=== PATIENT | female | born 1995 | race Caucasian/White ===

== ENCOUNTER 2020-04-26 12:57 | Emergency (ER) | payer OTHER ==
[2020-04-26] MEDS ORDERED: Ketamine 500 mg/10 ML MDV IV ONE (13:03)
--- NOTE | 2020-04-26 13:09 | EDM.PDOC ---
ED HPI GENERAL MEDICAL PROBLEM - General Chief Complaint: Lower Extremity Injury/Pain Stated Complaint: [facility] Time Seen by Provider: 04/26/20 12:58 Source of Information: Reports: Patient, EMS History Limitations: Reports: No Limitations - History of Present Illness INITIAL COMMENTS - FREE TEXT/NARRATIVE: The patient presents by [facility] for left patella dislocation. The patient was leaning against her care to grab something out of it and she twisted and her left patella dislocated laterally. The patient denies any other injuries. She has no medical problem. She last ate this morning. She has an IV and she was given a total of 1mg of dilaudid. Onset: Sudden Duration: Minutes: Location: Reports: Lower Extremity, Left (patella) Quality: Reports: Sharp Severity: Severe Improves with: Reports: Immobilization Worsens with: Reports: Movement Context: Denies: Trauma Associated Symptoms: Reports: No Other Symptoms - Related Data Allergies Allergy/AdvReac Type Severity Reaction Status Date / Time No Known Allergies Allergy Verified 04/26/20 13:02 Home Meds: Home Meds Hydrocodone/Acetaminophen [Hydrocodone-Acetamin 5-325 mg] 1 - 2 each PO Q6HR PRN #10 tablet 04/26/20 [Rx] Review of Systems - Review of Systems Review Of Systems: See Below Constitutional: Reports: No Symptoms Eyes: Reports: No Symptoms Ears: Reports: No Symptoms Nose: Reports: No Symptoms Mouth/Throat: Reports: No Symptoms Respiratory: Reports: No Symptoms Cardiovascular: Reports: No Symptoms GI/Abdominal: Reports: No Symptoms Genitourinary: Reports: No Symptoms Musculoskeletal: Reports: Other (Left patella dislocation) ED EXAM, GENERAL - Physical Exam Exam: See Below Exam Limited By: No Limitations General Appearance: Alert, No Apparent Distress Ears: Normal External Exam Nose: Normal Inspection Head: Atraumatic, Normocephalic Neck: Normal Inspection Respiratory/Chest: No Respiratory Distress, Lungs Clear, Normal Breath Sounds Cardiovascular: Regular Rate, Rhythm, No Edema, No Murmur GI/Abdominal: Soft, Non-Tender, No Organomegaly, No Mass Back Exam: Normal Inspection Extremities: Other (Lateral dislocation of the left patella. Good sensation and pulses distally.) ED TRAUMA EXTREMITY PROCEDURES - Joint Reduction Left Knee Sedation: Conscious Sedation Pre-Procedure NV Status: Normal Post-Procedure NV Status: Normal Technique: Other (Leg was straitend and the patella was easily reduced) Number of Attempts: 1 Post-Reduction Imaging: Completely Reduced Joint Reduction Complications: No Course - Vital Signs Last Recorded V/S: Last Vital Signs Temp 98.4 F 04/26/20 12:58 Pulse 66 04/26/20 12:58 Resp 16 04/26/20 12:58 BP 129/87 04/26/20 12:58 Pulse Ox 100 04/26/20 12:58 - Orders/Labs/Meds Orders: Active Orders 24 hr Category Date Time Status Knee 1V or 2V Lt [CR] Stat Exams 04/26/20 13:01 Taken Knee Min 4V Lt [CR] Stat Exams 04/26/20 13:30 Taken Lactated Ringers [Ringers, Lactated] 1,000 ml Med 04/26/20 13:30 Active IV ASDIRECTED Durable Medical Equipment for Discharge [DME for Oth 04/26/20 14:24 Ordered Discharge] [COMM] Stat Medication Orders Lactated Ringer's (Ringers, Lactated) 1,000 mls @ 150 mls/hr IV ASDIRECTED NOEMÍ Last Admin: 04/26/20 13:25 Dose: 150 mls/hr Documented by: SUSAN Bolton: Medications Generic Name Dose Route Start Last Admin Trade Name Freq PRN Reason Stop Dose Admin Lactated Ringer's 1,000 mls @ 150 mls/hr 04/26/20 13:30 04/26/20 13:25 Ringers, Lactated IV 150 mls/hr ASDIRECTED NOEMÍ Administration Discontinued Medications Generic Name Dose Route Start Last Admin Trade Name Freq PRN Reason Stop Dose Admin Ketamine HCl 60 mg 04/26/20 13:03 04/26/20 13:26 Ketalar IV 04/26/20 13:04 60 mg ONETIME ONE Administration - Re-Assessments/Exams Free Text/Narrative Re-Assessment/Exam: 04/26/20 13:08 I ordered an IV saline lock, x-ray and I will give her ketamine and sedate her and reduce the dislocation. 04/26/20 14:37 The reduction went well. The post reduction x-ray did not show any fractures. I will put her in a brace and have her follow up with Dr Wiley. Departure - Departure Time of Disposition: 14:40 Disposition: Home, Self-Care 01 Condition: Good Clinical Impression: Dislocation of left patella Qualifiers: Encounter type: initial encounter Qualified Code(s): S83.005A - Unspecified dislocation of left patella, initial encounter - Discharge Information *PRESCRIPTION DRUG MONITORING PROGRAM REVIEWED*: No *COPY OF PRESCRIPTION DRUG MONITORING REPORT IN PATIENT DUNIA: No Prescriptions: Hydrocodone/Acetaminophen [Hydrocodone-Acetamin 5-325 mg] 1 - 2 each PO Q6HR PRN #10 tablet PRN Reason: Pain Referrals: PCP,None [Primary Care Provider] - Hilton Wiley MD [Physician] - 1 Week Forms: ED Department Discharge Additional Instructions: Ice your knee for 15 minutes 3 times per day for 3 days. Wear the brace for comfort. Take tylenol or motrin for pain. If that does not work, try the hydrocodone. Follow up with Dr Wiley. Please return if you are worse. Sepsis Event Note (ED) - Evaluation Sepsis Screening Result: No Definite Risk - Focused Exam Vital Signs: Vital Signs Temp Pulse Resp BP Pulse Ox 04/26/20 12:58 98.4 F 66 16 129/87 100 - My Orders Last 24 Hours: My Active Orders 04/26/20 13:01 Knee 1V or 2V Lt [CR] Stat 04/26/20 13:30 Knee Min 4V Lt [CR] Stat Lactated Ringers [Ringers, Lactated] 1,000 ml IV ASDIRECTED 04/26/20 14:24 Durable Medical Equipment for Discharge [DME for Discharge] [COMM] Stat - Assessment/Plan Last 24 Hours: My Active Orders 04/26/20 13:01 Knee 1V or 2V Lt [CR] Stat 04/26/20 13:30 Knee Min 4V Lt [CR] Stat Lactated Ringers [Ringers, Lactated] 1,000 ml IV ASDIRECTED 04/26/20 14:24 Durable Medical Equipment for Discharge [DME for Discharge] [COMM] Stat
[2020-04-26] MEDS ORDERED: Lactated Ringers 1,000 ML IV SCH (13:30)
== END 2020-04-26 15:25 | disposition home or self-care (01) ==
LOC: JD.ED 12:57
DX: S83.005A Unspecified dislocation of left patella, initial encounter (principal); X50.1XXA Overexertion from prolonged static or awkward postures, initial encounter
CPT/HCPCS: 27560; 73560; 73564; 96360; 96361; 99152; 99283; J7120; 27562

== ENCOUNTER 2021-04-23 07:05 | Inpatient (IN) | payer OTHER ==
[2021-04-23] MEDS ORDERED: Bupivacaine 0.25% 10 ML SDV ONE (07:41)
[2021-04-23] MEDS ORDERED: Bupivacaine/fentaNYL/NS 100 ML Bag EPIDUR PRN (07:41)
[2021-04-23] MEDS ORDERED: ePHEDrine 50 MG/ML SDV IVPUSH PRN (07:41)
[2021-04-23] MEDS ORDERED: diphenhydrAMINE 50 MG/ML SDV IVPUSH PRN (07:41)
[2021-04-23] MEDS ORDERED: fentaNYL 100 MCG/2 ML SDV EPIDUR PRN (07:41)
[2021-04-23] MEDS ORDERED: Acetaminophen 325 MG Tab PO PRN (07:58)
[2021-04-23] MEDS ORDERED: Calcium Carbonate 500 MG Tab.Chew PO PRN (07:58)
[2021-04-23] MEDS ORDERED: Lidocaine 1% 50 ML MDV INJECT ONE (07:58)
[2021-04-23] MEDS ORDERED: Ondansetron 4 MG/2 ML SDV IVPUSH PRN (07:58)
[2021-04-23] MEDS ORDERED: Sodium Chloride 0.9% 10 ML Syringe FLUSH PRN (07:58)
[2021-04-23] MEDS ORDERED: Nalbuphine 10 MG/1 ML Vial IVPUSH PRN (07:58)
[2021-04-23] MEDS ORDERED: Oxytocin/Lactated Ringers 10 UNIT/1,000 ML BAG IV SCH ×2 (08:00)
[2021-04-23] MEDS: Lactated Ringers 1,000 ML IV SCH ×2 (10:26→12:28)
--- NOTE | 2021-04-23 12:57 | PCM.PREANE ---
Preanesthetic Assessment - Procedure Proposed Procedure: epidural - Anesthesia/Transfusion/Family Hx Anesthesia History: Prior Anesthesia Without Reaction Family History of Anesthesia Reaction: No Transfusion History: No Prior Transfusion(s) - Review of Systems General: Fatigue, Malaise Pulmonary: No Symptoms Cardiovascular: No Symptoms 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: Abdominal Pain (labor) Neurological: No Symptoms Other: Reports: None - Physical Assessment Vital Signs: Last Vital Signs Temp 36.6 C 04/23/21 08:06 Pulse 79 04/23/21 08:06 Resp 14 04/23/21 08:06 BP 119/80 04/23/21 08:06 Pulse Ox 100 04/23/21 08:06 Height: 1.73 m Weight: 71.985 kg ASA Class: 2 Mental Status: Alert & Oriented x3 Airway Class: Mallampati = 1 Dentition: Reports: Normal Dentition Thyro-Mental Finger Breadths: 3 Mouth Opening Finger Breadths: 3 ROM/Head Extension: Full Lungs: Clear to Auscultation, Normal Respiratory Effort - Lab Values: Laboratory Last Values WBC 7.17 K/mm3 (3.98-10.04) 04/23/21 08:40 RBC 3.93 M/mm3 (3.98-5.22) L 04/23/21 08:40 Hgb 10.9 gm/dl (11.2-15.7) L 04/23/21 08:40 Hct 33.9 % (34.1-44.9) L 04/23/21 08:40 MCV 86.3 fl (79.4-94.8) 04/23/21 08:40 MCH 27.7 pg (25.6-32.2) 04/23/21 08:40 MCHC 32.2 g/dl (32.2-35.5) 04/23/21 08:40 RDW Std Deviation 42.9 fL (36.4-46.3) 04/23/21 08:40 Plt Count 262 K/mm3 (182-369) 04/23/21 08:40 MPV 10.0 fl (9.4-12.3) 04/23/21 08:40 Neut % (Auto) 71.9 % (34.0-71.1) H 04/23/21 08:40 Lymph % (Auto) 20.4 % (19.3-51.7) 04/23/21 08:40 [place] % (Auto) 5.7 % (4.7-12.5) 04/23/21 08:40 Eos % (Auto) 1.3 (0.7-5.8) 04/23/21 08:40 Baso % (Auto) 0.1 % (0.1-1.2) 04/23/21 08:40 Neut # (Auto) 5.16 K/mm3 (1.56-6.13) 04/23/21 08:40 Lymph # (Auto) 1.46 K/mm3 (1.18-3.74) 04/23/21 08:40 [place] # (Auto) 0.41 K/mm3 (0.24-0.36) H 04/23/21 08:40 Eos # (Auto) 0.09 K/mm3 (0.04-0.36) 04/23/21 08:40 Baso # (Auto) 0.01 K/mm3 (0.01-0.08) 04/23/21 08:40 SARS-CoV-2 RNA (JUSTIN) Negative (NEGATIVE) 04/23/21 07:30 Blood Type O POSITIVE 04/23/21 08:40 Gel Antibody Screen Negative 04/23/21 08:40 - Allergies Allergies/Adverse Reactions: Allergies Allergy/AdvReac Type Severity Reaction Status Date / Time No Known Allergies Allergy Verified 04/23/21 08:41 - Anesthesia Plan Pre-Op Medication Ordered: None - Acknowledgements Anesthesia Type Planned: Epidural Pt an Appropriate Candidate for the Planned Anesthesia: Yes Alternatives and Risks of Anesthesia Discussed w Pt/Guardian: Yes Pt/Guardian Understands and Agrees with Anesthesia Plan: Yes PreAnesthesia Questionnaire - Past Health History Medical/Surgical History: Denies Medical/Surgical History 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 History: Reports: GERD 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 OB/BYN History: - SUBSTANCE USE Tobacco Use Status *Q: Never Tobacco User Tobacco Use Within Last Twelve Months: No Second Hand Smoke Exposure: No Recreational Drug Use History: No - CURRENT (IN HOUSE) MEDS Current Meds: Current Medications Acetaminophen (Acetaminophen 325 Mg Tab) 650 mg PO Q4H PRN PRN Reason: Pain (Mild 1-3) and fever Calcium Carbonate/Glycine (Calcium Carbonate 500 Mg Tab.Chew) 1,000 mg PO Q2H PRN PRN Reason: Indigestion Diphenhydramine HCl (Diphenhydramine 50 Mg/Ml Sdv) 25 mg IVPUSH Q6H PRN PRN Reason: pruritis Ephedrine Sulfate (Ephedrine 50 Mg/Ml Sdv) 5 mg IVPUSH ASDIRECTED PRN PRN Reason: Hypotension Fentanyl (Fentanyl 100 Mcg/2 Ml Sdv) 100 mcg EPIDUR Q3H PRN PRN Reason: Pain Last Admin: 04/23/21 12:29 Dose: 100 mcg Documented by: Fentanyl/Bupivacaine HCl (Bupivacaine/Fentanyl/Ns 100 Ml Bag) 100 ml EPIDUR ASDIRECTED PRN PRN Reason: Pain Last Admin: 04/23/21 12:30 Dose: 100 ml Documented by: Lactated Ringer's (Ringers, Lactated) 1,000 mls @ 100 mls/hr IV ASDIRECTED NOEMÍ Last Admin: 04/23/21 12:28 Dose: 100 mls/hr Documented by: Oxytocin/Lactated Ringer's (Pitocin In Lr 10 Units/1,000 Ml) 10 unit in 1,000 mls @ 12 mls/hr IV TITRATE NOEMÍ; Protocol Last Titration: 04/23/21 12:21 Dose: 2 munits/min, 12 mls/hr Documented by: Oxytocin/Lactated Ringer's (Pitocin In Lr 10 Units/1,000 Ml) 10 unit in 1,000 mls @ 100 mls/hr IV .CONTINUOUS NOEMÍ; Protocol Nalbuphine HCl (Nalbuphine 10 Mg/1 Ml Vial) 10 mg IVPUSH Q2H PRN PRN Reason: Pain Ondansetron HCl (Ondansetron 4 Mg/2 Ml Sdv) 4 mg IVPUSH Q4H PRN PRN Reason: Nausea/Vomiting Sodium Chloride (Sodium Chloride 0.9% 10 Ml Syringe) 10 ml FLUSH ASDIRECTED PRN PRN Reason: Keep Vein Open Discontinued Medications Lidocaine HCl (Lidocaine 1% 50 Ml Mdv) 50 ml INJECT ONETIME ONE Stop: 04/23/21 07:59
--- NOTE | 2021-04-23 13:08 | PCM.LDHP ---
L&D History of Present Illness - General Date of Service: 04/23/21 Admit Problem/Dx: Patient Status Order with Admit Dx/Problem 04/23/21 07:59 Patient Status [ADT] Routine Admission Diagnosis/Problem Admission Diagnosis/Problem - History of Present Illness Introduction:: 26 year old at 39w2d here for induction of labor. Good baby movement. PNC with myself without complications. 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/BYN History: Social & Family History - Family History Family Medical History: No Pertinent Family History - Tobacco Use Tobacco Use Status *Q: Never Tobacco User Second Hand Smoke Exposure: No - Caffeine Use Caffeine Use: Reports: None - Recreational Drug Use Recreational Drug Use: No H&P Review of Systems - Review of Systems: Review Of Systems: See Below General: Reports: No Symptoms HEENT: Reports: No Symptoms Pulmonary: Reports: No Symptoms Cardiovascular: Reports: No Symptoms 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: Reports: No Symptoms Genitourinary: Reports: No Symptoms Musculoskeletal: Reports: No Symptoms Skin: Reports: No Symptoms Psychiatric: Reports: No Symptoms Neurological: Reports: No Symptoms Hematologic/Lymphatic: Reports: No Symptoms Immunologic: Reports: No Symptoms L&D Exam - Exam Exam: See Below - Vital Signs Vital Signs: Last Vital Signs Temp 36.6 C 04/23/21 08:06 Pulse 79 04/23/21 08:06 Resp 14 04/23/21 08:06 BP 119/80 04/23/21 08:06 Pulse Ox 100 04/23/21 08:06 Weight: 71.985 kg - OB Specific Fundal Height In cm: 39 Contraction Intensity: Moderate Movement: Active Heart Tones: Present - Garcia Score Garica Score Cervix Position: Midposition Garcia Score Consistency: Soft Garcia Score Effacement: 51-70% Garcia Score Dilation: 3-4 cm Garcia Score 's Station: -2 Garcia Score Total: 8 - Exam General: Alert, Oriented HEENT: PERRLA, Conjunctiva Clear, EACs Clear, EOMI, Hearing Intact, Mucosa Moist & [place], Nares Patent, Normal Nasal Septum, Posterior Pharynx Clear, TMs Clear Neck: Supple, Trachea Midline Lungs: Clear to Auscultation, Normal Respiratory Effort Cardiovascular: Regular Rate, Regular Rhythm GI/Abdominal Exam: Normal Bowel Sounds, Soft, Non-Tender, No Organomegaly, No Distention, No Abnormal Bruit, No Mass, Pelvis Stable Rectal Exam: Normal Exam Back Exam: Normal Inspection, Full Range of Motion Extremities: Normal Inspection, Normal Range of Motion, Non-Tender, No Pedal Edema, Normal Capillary Refill Skin: Warm, Dry, Intact Neurological: Cranial Nerves Intact, Reflexes Equal Bilateral Psychiatric: Alert, Normal Affect, Normal Mood - Patient Data Lab Results Last 24 hrs: Laboratory Results - last 24 hr 04/23/21 04/23/21 04/23/21 Range/Units 07:30 08:40 08:40 WBC 7.17 (3.98-10.04) K/mm3 RBC 3.93 L (3.98-5.22) M/mm3 Hgb 10.9 L (11.2-15.7) gm/dl Hct 33.9 L (34.1-44.9) % MCV 86.3 (79.4-94.8) fl MCH 27.7 (25.6-32.2) pg MCHC 32.2 (32.2-35.5) g/dl RDW Std Deviation 42.9 (36.4-46.3) fL Plt Count 262 (182-369) K/mm3 MPV 10.0 (9.4-12.3) fl Neut % (Auto) 71.9 H (34.0-71.1) % Lymph % (Auto) 20.4 (19.3-51.7) % [place] % (Auto) 5.7 (4.7-12.5) % Eos % (Auto) 1.3 (0.7-5.8) Baso % (Auto) 0.1 (0.1-1.2) % Neut # (Auto) 5.16 (1.56-6.13) K/mm3 Lymph # (Auto) 1.46 (1.18-3.74) K/mm3 [place] # (Auto) 0.41 H (0.24-0.36) K/mm3 Eos # (Auto) 0.09 (0.04-0.36) K/mm3 Baso # (Auto) 0.01 (0.01-0.08) K/mm3 SARS-CoV-2 RNA (JUSTIN) Negative (NEGATIVE) Blood Type O POSITIVE Gel Antibody Screen Negative Result Diagrams: 04/23/21 08:40 Problem List Initiated/Reviewed/Updated: Yes Orders Last 24hrs: Active Orders 24 hr Category Date Time Status Patient Status [ADT] Routine ADT 04/23/21 07:59 Active Activity as Tolerated [RC] PFP Care 04/23/21 07:59 Active Communication Order [RC] ASDIRECTED Care 04/23/21 07:41 Active Communication Order [RC] ASDIRECTED Care 04/23/21 07:59 Active Cooling Warming Measures [RC] ASDIRECTED Care 04/23/21 07:41 Active Heart Tones [RC] ASDIRECTED Care 04/23/21 07:59 Active Notify Provider [RC] ASDIRECTED Care 04/23/21 07:41 Active Notify Provider [RC] ASDIRECTED Care 04/23/21 07:41 Active Notify Provider [RC] PFP Care 04/23/21 07:59 Active Notify Provider [RC] PRN Care 04/23/21 07:59 Active Oxygen Therapy [RC] ASDIRECTED Care 04/23/21 07:41 Active Peripheral IV Care [RC] . DIRECTED Care 04/23/21 07:59 Active Pulse Oximetry [RC] ASDIRECTED Care 04/23/21 07:41 Active Pump Management, Intrathecal [RC] ASDIRECTED Care 04/23/21 07:59 Active Urinary Catheter Assessment [RC] ASDIRECTED Care 04/23/21 07:58 Active Vital Signs [RC] ASDIRECTED Care 04/23/21 07:41 Active Vital Signs [RC] PER UNIT ROUTINE Care 04/23/21 07:59 Active Regular Diet [DIET] Diet 04/23/21 Lunch Active PATIENT RETYPE [BBK] Routine Lab 04/23/21 09:33 Ordered RAPID PLASMA REAGIN,RPR [CHEM] Routine Lab 04/23/21 08:40 Received Acetaminophen [TylenoL] Med 04/23/21 07:58 Active 650 mg PO Q4H PRN Bupivacaine/fentaNYL/NS [fentaNYL/Bupivacaine/NS 2 MCG- Med 04/23/21 07:41 Active 0.125% 100 ML] 100 ml EPIDUR ASDIRECTED PRN Calcium Carbonate [Tums] Med 04/23/21 07:58 Active 1,000 mg PO Q2H PRN Lactated Ringers [Ringers, Lactated] 1,000 ml Med 04/23/21 08:00 Active IV ASDIRECTED Nalbuphine [Nubain] Med 04/23/21 07:58 Active 10 mg IVPUSH Q2H PRN Ondansetron [Zofran] Med 04/23/21 07:58 Active 4 mg IVPUSH Q4H PRN Oxytocin/Lactated Ringers [Pitocin in LR 10 Units/1,000 Med 04/23/21 08:00 Active ML] 10 unit in 1,000 ml IV .CONTINUOUS Oxytocin/Lactated Ringers [Pitocin in LR 10 Units/1,000 Med 04/23/21 08:00 Active ML] 10 unit in 1,000 ml IV TITRATE Sodium Chloride 0.9% [Saline Flush] Med 04/23/21 07:58 Active 10 ml FLUSH ASDIRECTED PRN diphenhydrAMINE [Benadryl] Med 04/23/21 07:41 Active 25 mg IVPUSH Q6H PRN ePHEDrine [ePHEDrine sulfate] Med 04/23/21 07:41 Active 5 mg IVPUSH ASDIRECTED PRN fentaNYL [Sublimaze] Med 04/23/21 07:41 Active 100 mcg EPIDUR Q3H PRN Electronic Heart Tones Ext w TOCO [WOMSER] Oth 04/23/21 07:59 Ordered Routine Electronic Heart Tones Internal [WOMSER] Per Unit Ot 04/23/21 07:59 Ordered Routine Peripheral IV Insertion Adult [OM.PC] Routine Oth 04/23/21 07:59 Ordered Resuscitation Status Routine Resus Stat 04/23/21 07:58 Ordered Medication Orders Acetaminophen (Acetaminophen 325 Mg Tab) 650 mg PO Q4H PRN PRN Reason: Pain (Mild 1-3) and fever Calcium Carbonate/Glycine (Calcium Carbonate 500 Mg Tab.Chew) 1,000 mg PO Q2H PRN PRN Reason: Indigestion Diphenhydramine HCl (Diphenhydramine 50 Mg/Ml Sdv) 25 mg IVPUSH Q6H PRN PRN Reason: pruritis Ephedrine Sulfate (Ephedrine 50 Mg/Ml Sdv) 5 mg IVPUSH ASDIRECTED PRN PRN Reason: Hypotension Fentanyl (Fentanyl 100 Mcg/2 Ml Sdv) 100 mcg EPIDUR Q3H PRN PRN Reason: Pain Last Admin: 04/23/21 12:29 Dose: 100 mcg Documented by: SAROJ Fentanyl/Bupivacaine HCl (Bupivacaine/Fentanyl/Ns 100 Ml Bag) 100 ml EPIDUR ASDIRECTED PRN PRN Reason: Pain Last Admin: 04/23/21 12:30 Dose: 100 ml Documented by: SAROJ Lactated Ringer's (Ringers, Lactated) 1,000 mls @ 100 mls/hr IV ASDIRECTED NOEMÍ Last Admin: 04/23/21 12:28 Dose: 100 mls/hr Documented by: Infusion: 04/23/21 12:28 Dose: 100 mls/hr Documented by: Admin: 04/23/21 10:26 Dose: 100 mls/hr Documented by: SAROJ Oxytocin/Lactated Ringer's (Pitocin In Lr 10 Units/1,000 Ml) 10 unit in 1,000 mls @ 12 mls/hr IV TITRATE NOEMÍ; Protocol Last Titration: 04/23/21 12:21 Dose: 2 munits/min, 12 mls/hr Documented by: Titration: 04/23/21 11:42 Dose: 6 munits/min, 36 mls/hr Documented by: Titration: 04/23/21 11:15 Dose: 4 munits/min, 24 mls/hr Documented by: Admin: 04/23/21 10:27 Dose: 2 munits/min, 12 mls/hr Documented by: SAROJ Oxytocin/Lactated Ringer's (Pitocin In Lr 10 Units/1,000 Ml) 10 unit in 1,000 mls @ 100 mls/hr IV .CONTINUOUS NOEMÍ; Protocol Nalbuphine HCl (Nalbuphine 10 Mg/1 Ml Vial) 10 mg IVPUSH Q2H PRN PRN Reason: Pain Ondansetron HCl (Ondansetron 4 Mg/2 Ml Sdv) 4 mg IVPUSH Q4H PRN PRN Reason: Nausea/Vomiting Sodium Chloride (Sodium Chloride 0.9% 10 Ml Syringe) 10 ml FLUSH ASDIRECTED PRN PRN Reason: Keep Vein Open Assessment/Plan Comment:: AROM clear fluid. Pitocin Anesthesia per patient desire Anticipate unless otherwise indicated
--- NOTE | 2021-04-23 14:02 | PCM.SN.2 ---
- Free Text/Narrative Note: Stage I - patient presented for induction of labor. AROM clear fluid. Pitocin. Epidural for anesthesia. Progressed to complete. Stage II - of viable female, weight 3180g, 8/9 apgars at 1345. Head delivered in controlled manner over intact perineum. body and shoulders atraumatically. Positive cry. To maternal abdomen. Cord clamped and cut. Cord blood collected. 3vc. Stage III - of intact placenta. 3v. No laceration. EBL 50. Time Documentation
[2021-04-23] MEDS ORDERED: Benzocaine/Menthol 20%-0.5% Spray 78 GM Cannister TOP PRN (14:13)
[2021-04-23] MEDS ORDERED: Witch Hazel Medicated Pads 40/Jar TOP PRN (14:13)
[2021-04-23] MEDS ORDERED: Docusate Sodium 100 MG Cap PO PRN (14:13)
[2021-04-23] MEDS: Ibuprofen 600 MG Tab PO PRN ×2 (14:52→22:56)
[2021-04-24] MEDS ORDERED: Acetaminophen 325 MG Tab PO PRN (04:06)
[2021-04-24] MEDS: Ibuprofen 600 MG Tab PO PRN (05:15)
--- NOTE | 2021-04-24 08:19 | PCM48HPAN ---
Post Anesthesia Note - EVALUATION WITHIN 48HRS OF ANESTHETIC Vital Signs in Normal Range: Yes Patient Participated in Evaluation: Yes Respiratory Function Stable: Yes Airway Patent: Yes Cardiovascular Function Stable: Yes Hydration Status Stable: Yes Pain Control Satisfactory: Yes Nausea and Vomiting Control Satisfactory: Yes Mental Status Recovered: Yes Vital Signs: Last Vital Signs Temp 37.0 C 04/24/21 03:09 Pulse 61 04/24/21 03:09 Resp 14 04/24/21 03:09 BP 130/79 04/24/21 03:09 Pulse Ox 99 04/24/21 03:09
== END 2021-04-24 13:57 | disposition home or self-care (01) | DRG 807 ==
LOC: JD.OB 07:05 → OBSVTOIN 13:45 → JD.OB 13:46
PROVIDERS: ADMIT Obstetrics & Gynecology; ATTEND Obstetrics & Gynecology
PROC: 10E0XZZ Delivery of Products of Conception, External Approach (ICD-10-PCS; principal; 2021-04-23)
PROC: 10907ZC Drainage of Amniotic Fluid, Therapeutic from Products of Conception, Via Natural or Artificial Opening (ICD-10-PCS; 2021-04-23)
PROC: 3E033VJ Introduction of Other Hormone into Peripheral Vein, Percutaneous Approach (ICD-10-PCS; 2021-04-23)
PROC: 3E0R3BZ Introduction of Anesthetic Agent into Spinal Canal, Percutaneous Approach (ICD-10-PCS; 2021-04-23)
PROC: 00HU33Z Insertion of Infusion Device into Spinal Canal, Percutaneous Approach (ICD-10-PCS; 2021-04-23)
DX: O99.62 Diseases of the digestive system complicating childbirth (principal); Z37.0 Single live birth; Z20.822 Contact with and (suspected) exposure to COVID-19; K21.9 Gastro-esophageal reflux disease without esophagitis; Z3A.39 39 weeks gestation of pregnancy
CPT/HCPCS: 36415; 59025; 59409; 85025; 86592; 86850; 86900; 86901; A9270-GY; J2590; J3010; J3490; J7120; U0002

== ENCOUNTER 2022-07-01 08:48 | Emergency (ER) | payer OTHER ==
[2022-07-01 10:33] LABS: CORONAVIRUS COVID-19 NAA NEGATIVE (NEGATIVE)
== END 2022-07-01 12:08 | disposition home or self-care (01) ==
LOC: JD.ED 08:48
DX: J06.9 Acute upper respiratory infection, unspecified (principal); Z20.822 Contact with and (suspected) exposure to COVID-19
CPT/HCPCS: 0241U; 99283

== ENCOUNTER 2024-02-25 15:17 | Emergency (ER) | payer SELFPAY ==
[2024-02-25 16:06] LABS: HEMOGLOBIN 12.6 gm/dl (12.0-16.0); MEAN CORPUSCULAR VOLUME 83.9 fl (83.0-99.0); RED BLOOD CELL COUNT 4.29 M/mm3 (4.10-5.30); WHITE BLOOD CELL COUNT,WBC 4.67 K/mm3 (3.9-11.3)
[2024-02-25 16:07] LABS: BASOPHILS PERCENT AUTO 0.4 % (0.0-1.0); EOSINOPHILS ABSOLUTE AUTO 0.1 K/mm3 (0.0-0.4); EOSINOPHILS PERCENT AUTO 1.3 % (0.0-6.0); IMMATURE GRAN ABSOLUTE AUTO 0.01 K/mm3 (0.00-0.05); IMMATURE GRAN PERCENT AUTO 0.2 % (0.0-0.4); LYMPHOCYTES ABSOLUTE AUTO 1.3 K/mm3 (1.0-4.8); LYMPHOCYTES PERCENT AUTO 27.4 % (24.0-44.0); MEAN CORPUSCULAR HEMOGLOBIN 29.4 pg (28.0-32.0); MEAN PLATELET VOLUME 9.5 fl (9.4-12.3); MONOCYTES ABSOLUTE AUTO 0.6 K/mm3 (0.0-0.8); MONOCYTES PERCENT AUTO 13.5 % (0.0-8.0); NEUTROPHILS ABSOLUTE AUTO 2.7 K/mm3 (1.8-7.7); NEUTROPHILS PERCENT AUTO 57.2 % (41.0-71.0); PLATELET COUNT,PLT 221 K/mm3 (150-400)
[2024-02-25] MEDS: Famotidine 20 MG Tab PO ONE (16:19)
[2024-02-25] MEDS: Alum Hydrox/Mag Hydrox/Simeth 30 ML, Lidocaine 2% 15 ML PO ONE (16:20)
[2024-02-25 16:31] LABS: HCG QUALITATIVE,SERUM NEGATIVE (NEGATIVE)
[2024-02-25 16:33] LABS: A/G RATIO 1.2 (1-2); ALANINE AMINOTRANSFERASE,ALT 18 U/L (14-59); ALBUMIN 3.9 g/dl (3.4-5.0); ALKALINE PHOSPHATASE 38 U/L (46-116); ANION GAP 14.5 (5-15); ASPARTATE AMNIOTRANSFERASE,AST 14 U/L (15-37); BILIRUBIN TOTAL 0.4 mg/dL (0.2-1.0); BLOOD UREA NITROGEN,BUN 7 mg/dL (7-18); BUN/CREATININE RATIO 11.7 (14-18); CALCIUM 8.6 mg/dL (8.5-10.1); CARBON DIOXIDE,CO2 23 mEq/L (21-32); CHLORIDE,CL 102 mEq/L (98-107); CREATININE 0.6 mg/dL (0.55-1.02); EST CRCL DRUG DOSING (CG) 136.35 mL/min; ESTIMATED GFR 124 mL/min (>60); GLUCOSE RANDOM 97 mg/dL (70-99); LIPASE 39 U/L (16-77); POTASSIUM,K 3.5 mEq/L (3.5-5.1); PROTEIN TOTAL,TP 7.1 g/dl (6.4-8.2); SODIUM,NA 136 mEq/L (136-145)
[2024-02-25 16:40] LABS: TROPONIN I HIGH SENSITIVITY < 4 pg/mL (<=51)
[2024-02-25 17:15] LABS: CORONAVIRUS COVID-19 NAA POSITIVE (NEGATIVE); INFLUENZA A NAA NEGATIVE (NEGATIVE); RESPIRATORY SYNCYTIAL VIR NAA NEGATIVE (NEGATIVE)
== END 2024-02-25 18:45 | disposition home or self-care (01) ==
LOC: JD.ED 15:17
DX: U07.1 COVID-19 (principal); R07.89 Other chest pain; J02.9 Acute pharyngitis, unspecified; Z79.899 Other long term (current) drug therapy
CPT/HCPCS: 0241U; 36415; 71045; 80053; 83690; 84484; 84703; 85025; 86308; 87651; 93005; 99285; A9270

== ENCOUNTER 2024-07-18 20:02 | Emergency (ER) | payer SELFPAY ==
[2024-07-18] MEDS: Bacitracin Oint 15 GM Tube TOP ONE (20:31)
== END 2024-07-18 20:42 | disposition home or self-care (01) ==
LOC: JD.ED 20:02
DX: L03.031 Cellulitis of right toe (principal); Z86.16 Personal history of COVID-19
CPT/HCPCS: 99283; A9270